=== PATIENT | female | born 1945 | race Two or more races ===

== ENCOUNTER 2024-06-21 10:07 | Emergency (ER) | payer OTHER ==
[~2024-06-21] VITALS: Ht 154.9 cm; Wt 55.3 kg
[~2024-06-21 10:07] MED LIST: MAXZIDE-25 MG T1 TAB; METFORMIN HCL500 MG; SULINDAC150 MG; VYTORIN 10-20 M1 TAB
[2024-06-21] MEDS ORDERED: ZESTORETIC 20-1 EAC1 (10:16)
[2024-06-21] MEDS ORDERED: ZYRTEC10 MG (10:17)
[2024-06-21] MEDS ORDERED: OMEPRAZOLE-BIC1 EAC1 (10:17)
[2024-06-21] MEDS ORDERED: SIMVASTATIN5 MG (10:17)
[2024-06-21] MEDS ORDERED: COZAAR25 MG (10:24)
[2024-06-21 11:04] LABS: HEMATOCRIT 34.3 % (36.0-45.00); HEMOGLOBIN 11.6 g/dL (12.0-15.00); MEAN CELL VOLUME 87.7 fL (80.00-100.00); MEAN CORPUSCULAR HEMOGLOBIN 29.7 pg (27.00-32.0); MEAN CORPUSCULAR HGB CONC 33.9 g/dl (32.0-36.0); PLATELET COUNT 261 K/uL (150-450); RED BLOOD COUNT 3.91 M/uL (4.00-6.00); RED CELL DISTRIBUTION WIDTH 13.8 % (11.5-14.5)
[2024-06-21 11:15] LABS: CALCIUM 9.7 mg/dL (8.5-10.1); CREATININE SERUM 1.27 mg/dL (0.55-1.02); GFR 40.49; POTASSIUM 4.27 mEq/L (3.5-5.1)
[2024-06-21 11:25] LABS: INR 1.46; PROTHROMBIN TIME 14.9 SECONDS (9.0-11.5)
[2024-06-21 11:30] LABS: PARTIAL THROMBOPLASTIN TIME 48.7 SECONDS (22.0-34.0)
== END 2024-06-21 12:31 | disposition home or self-care (01) ==
LOC: ER 10:08
PROVIDERS: General Practice
DX: S86.812A Strain of other muscle(s) and tendon(s) at lower leg level, left leg, initial encounter (principal); X58.XXXA Exposure to other specified factors, initial encounter; Y93.89 Activity, other specified; Y92.89 Other specified places as the place of occurrence of the external cause; M79.605 Pain in left leg; E11.9 Type 2 diabetes mellitus without complications; Z79.84 Long term (current) use of oral hypoglycemic drugs; I10 Essential (primary) hypertension